=== PATIENT | male | born 1945 | race Caucasian/White ===

== ENCOUNTER 2016-05-28 06:57 | Day surgery (SDC) | payer OTHER, MEDICARE ==
[2016-05-28] MEDS ORDERED: Sodium Chloride 0.9% 10 ML Syringe FLUSH PRN (07:00)
[2016-05-28] MEDS ORDERED: Lactated Ringers 1,000 ML IV SCH (07:00)
[2016-05-28] MEDS ORDERED: Propofol 200 MG/20 ML SDV IV ONE (08:25)
--- NOTE | 2016-05-28 09:22 | OR ---
DATE OF OPERATION: 05/28/2016 SURGEON: Craig Craft MD PROCEDURE PERFORMED: Colonoscopy. PREOPERATIVE DIAGNOSIS: Heme-positive stools. POSTOPERATIVE DIAGNOSIS: Internal hemorrhoids. INDICATIONS FOR PROCEDURE: This is a 70-year-old white male, who is referred with a complaint of heme-positive stools. On exam, he was offered and accepted colonoscopy as part of a workup. DESCRIPTION OF OPERATION: After an excellent IV sedation was administered, digital rectal exam was performed. No marked abnormality was noted. The flexible colonoscope was inserted and advanced to the cecum without difficulty. The following findings were noted. The prep was excellent. Ascending colon, unremarkable. Transverse colon, unremarkable. Descending colon, unremarkable. Sigmoid and rectum unremarkable. Colon was deflated, as the scope was removed. On retroflexion of the scope, there was evidence of internal hemorrhoids, which appears to be the cause of his bleeding. /[id number] /AIRAML
[2016-05-28 10:49] VITALS: BP 120/72
== END 2016-05-28 10:05 | disposition home or self-care (01) ==
LOC: FB.SDS 06:57 → FB.MS 06:57 → FB.SDS 10:05
PROVIDERS: ATTEND Surgery
DX: K64.8 Other hemorrhoids (principal); J30.2 Other seasonal allergic rhinitis; E78.2 Mixed hyperlipidemia; Z79.899 Other long term (current) drug therapy; F33.8 Other recurrent depressive disorders; Z98.890 Other specified postprocedural states; F17.210 Nicotine dependence, cigarettes, uncomplicated
CPT/HCPCS: 45378; J2704; J7120

== ENCOUNTER 2017-02-03 07:17 | Day surgery (SDC) | payer OTHER, MEDICARE ==
[2017-02-03] MEDS ORDERED: Lactated Ringers 1,000 ML IV SCH ×2 (08:15→08:45)
[2017-02-03] MEDS ORDERED: Propofol 200 MG/20 ML SDV IV ONE (08:30)
[2017-02-03] MEDS ORDERED: Midazolam 1 MG/ML 2 ML SDV IV ONE (08:30)
[2017-02-03] MEDS ORDERED: Lidocaine 2% 100 MG/5 ML Syringe IVPUSH ONE (08:30)
[2017-02-03] MEDS ORDERED: Sodium Chloride 0.9% 10 ML Syringe FLUSH PRN (08:45)
--- NOTE | 2017-02-03 09:20 | OR ---
DATE OF OPERATION: 02/03/2017 SURGEON: Craig Craft MD PROCEDURE PERFORMED: Esophagogastroduodenoscopy with cold forceps biopsy. PREOPERATIVE DIAGNOSIS: Dysphagia. POSTOPERATIVE DIAGNOSIS: Duodenal stricture, gastroduodenitis, esophagitis with a small hiatal hernia. INDICATIONS FOR PROCEDURE: This is a 71-year-old white male who was referred with the above-mentioned complaints. He was offered and accepted an upper endoscopy as part of his workup. DESCRIPTION OF OPERATION: After an excellent IV sedation was administered, the bite block was inserted. The flexible endoscope was passed without difficulty down the patient's esophagus into the stomach. Stomach was insufflated. Scope was passed through the pylorus to the 2nd portion of the duodenum and slowly withdrawn. The following findings were noted. Between the first and 2nd portion of the duodenum, the patient does have a duodenal stricture. We were able to get the scope through this without difficulty. There was some retained food just proximal to this in the 1st portion of the duodenum. No evidence of ulceration was noted. Biopsies were taken. Stomach, diffuse gastritis. Biopsies were taken. A small hiatal hernia was noted. Distal esophagus, GE junction was roughly at 40 cm. Mild erythema was noted just proximal to this and biopsies were taken. The remainder of the esophageal exam was unremarkable. The stomach was deflated, scope was removed. The patient tolerated the procedure well and was taken to recovery room in good condition. /[id number] /MODL
[2017-02-03 10:46] VITALS: BP 157/60
== END 2017-02-03 10:33 | disposition home or self-care (01) ==
LOC: FB.SDS 07:17
PROVIDERS: ATTEND Surgery
DX: K20.9 Esophagitis, unspecified (principal); K31.5 Obstruction of duodenum; K44.9 Diaphragmatic hernia without obstruction or gangrene; K29.90 Gastroduodenitis, unspecified, without bleeding; J30.2 Other seasonal allergic rhinitis; E78.2 Mixed hyperlipidemia; F33.1 Major depressive disorder, recurrent, moderate; F17.210 Nicotine dependence, cigarettes, uncomplicated; N52.9 Male erectile dysfunction, unspecified; Z79.899 Other long term (current) drug therapy; Z88.8 Allergy status to other drugs, medicaments and biological substances
CPT/HCPCS: 00740; 43239; 88305; 88313; 88342; J2250; J2704; J7120

== ENCOUNTER → 2019-01-18 | Outpatient (CLI) | payer MEDICARE | LOC: FB.DI 14:41 | PROVIDERS: ATTEND Nurse Practitioner Family | DX: Z12.2 Encounter for screening for malignant neoplasm of respiratory organs (principal); R91.8 Other nonspecific abnormal finding of lung field; F17.200 Nicotine dependence, unspecified, uncomplicated | CPT/HCPCS: G0297 ==

== ENCOUNTER 2020-10-26 22:24 | Emergency (ER) | payer MEDICARE, OTHER ==
--- NOTE | 2020-10-26 23:15 | EDM.PDOC ---
ED HPI GENERAL MEDICAL PROBLEM - General Stated Complaint: HEAD/ELBOW LAC Time Seen by Provider: 10/26/20 22:30 Source of Information: Reports: Patient History Limitations: Reports: No Limitations - History of Present Illness INITIAL COMMENTS - FREE TEXT/NARRATIVE: Patient presented to the ED because of a Rt eyebrow laceration and an abrasion on the rt forearm. He tripped and fell and hit his forehead against a furniture. there was no LOC after the fall. There is no headache, nausea, vomiting. - Related Data Allergies Allergy/AdvReac Type Severity Reaction Status Date / Time ENVIRONMENTAL Allergy UNKNOWN Uncoded 10/27/20 00:42 Home Meds: Home Meds Ascorbic Acid 500 mg PO DAILY 05/27/16 [History] Cholecalciferol (Vitamin D3) [Vitamin D3] 1,000 unit PO DAILY 05/27/16 [History] Cyanocobalamin (Vitamin B-12) [Vitamin B-12] 200 mcg PO DAILY 05/27/16 [History] Esomeprazole [NexIUM] 20 mg PO DAILY 05/27/16 [History] Multivitamin [Multi-Vitamin Daily] 1 each PO DAILY 05/27/16 [History] Potassium 99 mg PO DAILY 05/27/16 [History] atorvaSTATin [Lipitor] 10 mg PO BEDTIME 05/27/16 [History] buPROPion [buPROPion XL] 300 mg PO DAILY 05/27/16 [History] guaiFENesin/Dextromethorphan [Mucinex Dm ER 600-30 mg Tablet] 1 each PO Q12HR PRN 05/27/16 [History] Clobetasol [Clobetasol 0.05%] 1 applic TOP BID 02/02/17 [History] Vit C/Vit E/Lutein/Minerals 1 [Prosight with Lutein] 1 each PO DAILY 02/02/17 [History] Past Medical History HEENT History: Reports: Allergic Rhinitis, Impaired Vision, Sinusitis Cardiovascular History: Reports: High Cholesterol Respiratory History: Reports: Other (See Below) Other Respiratory History: 51 YR HX SMOKER Gastrointestinal History: Reports: Other (See Below) Other Gastrointestinal History: STOMACH ULCERS Genitourinary History: Reports: None [employer]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 Musculoskeletal History: Reports: Fracture Neurological History: Reports: Migraines Psychiatric History: Reports: None, Depression Endocrine/Metabolic History: Reports: None Hematologic History: Reports: None Immunologic History: Reports: None Oncologic (Cancer) History: Reports: None Dermatologic History: Reports: None - Infectious Disease History Infectious Disease History: Reports: Measles - Past Surgical History Head Surgeries/Procedures: Reports: None HEENT Surgical History: Reports: None Cardiovascular Surgical History: Reports: None Respiratory Surgical History: Reports: None GI Surgical History: Reports: Colonoscopy, Hernia, Inguinal Male Surgical History: Reports: Other (See Below) Other Male Surgeries/Procedures: ERECTILE DISORDER Endocrine Surgical History: Reports: None Neurological Surgical History: Reports: None Musculoskeletal Surgical History: Reports: Other (See Below) Other Musculoskeletal Surgeries/Procedures:: HX RIB FX-LEFT SIDE 7,8,9 Dermatological Surgical History: Reports: None Social & Family History - Family History Family Medical History: No Pertinent Family History - Caffeine Use Caffeine Use: Reports: Coffee Other Caffeine Use: ABOUT 10 TO 20 CUPS A DAY. ED ROS GENERAL - Review of Systems Review Of Systems: See Below Constitutional: Reports: No Symptoms HEENT: Reports: No Symptoms Respiratory: Reports: No Symptoms Cardiovascular: Reports: No Symptoms Endocrine: Reports: No Symptoms GI/Abdominal: Reports: No Symptoms : Reports: No Symptoms Musculoskeletal: Reports: No Symptoms Skin: Reports: Wound Neurological: Reports: No Symptoms Psychiatric: Reports: No Symptoms Hematologic/Lymphatic: Reports: No Symptoms Immunologic: Reports: No Symptoms ED EXAM, GENERAL - Physical Exam Exam: See Below Exam Limited By: No Limitations General Appearance: Alert, No Apparent Distress Ears: Normal External Exam, Normal Canal, Normal TMs Nose: Normal Inspection, Normal Mucosa, No Blood Throat/Mouth: Normal Inspection, Normal Lips, Normal Teeth, Normal Gums Head: Atraumatic, Normocephalic Neck: Normal Inspection, Supple, Non-Tender, Full Range of Motion Respiratory/Chest: No Respiratory Distress, Lungs Clear, Normal Breath Sounds, No Accessory Muscle Use, Chest Non-Tender Cardiovascular: Normal Peripheral Pulses, Regular Rate, Rhythm, No Edema, No Gallop, No JVD, No Murmur, No Rub GI/Abdominal: Normal Bowel Sounds, Soft, Non-Tender, No Organomegaly, No Distention, No Abnormal Bruit, No Mass Back Exam: Normal Inspection, Full Range of Motion Extremities: Normal Inspection, Normal Range of Motion, Non-Tender Neurological: Alert, Oriented, CN II-XII Intact, Normal Cognition, Normal Gait Psychiatric: Normal Affect Skin Exam: Warm ED GENERAL MEDICAL PROCEDURES - Laceration/Wound Repair Right Forehead Lac/wound length in cm: 2.5 Appearance: Superficial, Clean Skin Prep: Chlorhexidine (Hibiciens) Closed with: Dermabond Course - Vital Signs Text/Narrative:: UTD with immunization Last Recorded V/S: Last Vital Signs Temp 36.6 C 10/26/20 22:24 Pulse 70 10/26/20 22:24 Resp 18 10/26/20 22:24 BP 136/82 10/26/20 22:24 Pulse Ox 98 10/26/20 22:24 Departure - Departure Time of Disposition: 23:20 Disposition: Home, Self-Care 01 Condition: Good Clinical Impression: Laceration, Abrasion - Discharge Information Instructions: Laceration Care, Adult, [id number] Referrals: PCP,None [Primary Care Provider] - Forms: ED Department Discharge Additional Instructions: Please read discharge instructions on laceration and wound care Keep wound dry and clean for 3-5 days No need to apply an antibiotic ointment, the glue is medicated Follow up as needed
[2020-10-27 00:47] VITALS: BP 136/82; PULSE 70
== END 2020-10-26 23:25 | disposition home or self-care (01) ==
LOC: FB.ED 22:24
DX: S01.81XA Laceration without foreign body of other part of head, initial encounter (principal); S50.811A Abrasion of right forearm, initial encounter; E78.00 Pure hypercholesterolemia, unspecified; F17.200 Nicotine dependence, unspecified, uncomplicated; Z91.048 Other nonmedicinal substance allergy status; Z79.899 Other long term (current) drug therapy; W01.198A Fall on same level from slipping, tripping and stumbling with subsequent striking against other object, initial encounter
CPT/HCPCS: 12011; 99282-25